=== PATIENT | male | born 1950 | race Caucasian/White ===

== ENCOUNTER → 2017-01-28 | Outpatient (CLI) | payer MEDICARE ==
[2017-01-28 08:53] LABS: Basophils % (A) 1 %; CH 29.3; CHCM 33.8; Eosinophils # (A) 0.4 k/uL (0-0.7); Eosinophils % (A) 5 %; HCT 42.1 % (39.0-53.0); HDW 2.57; HGB 14.5 gm/dL (13.0-17.5); Luc # (Auto) 0.21; Luc % (Auto) 3; Lymphocytes # (A) 2.3 k/uL (1.0-4.8); Lymphocytes % (A) 30 %; MCHC 34.4 g/dL (31.0-37.0); MCV 87.2 fL (80.0-100.0); Monocytes # (A) 0.5 k/uL (0-1.0); Monocytes % (A) 7 %; Neutrophils # (A) 4.2 k/uL (1.3-7.7); Neutrophils % (A) 55 %; RBC 4.83 m/uL (4.30-5.90); RDW 12.8 % (11.5-15.5); WBC 7.6 k/uL (3.8-10.6); WBC (Perox) 7.87
[2017-01-28 09:18] LABS: ALT 29 U/L (21-72); AST 26 U/L (17-59); Alkaline Phosphatase 75 U/L (38-126); Anion Gap 9 mmol/L; Blood Urea Nitrogen 16 mg/dL (9-20); Calcium 9.1 mg/dL (8.4-10.2); Carbon Dioxide 28 mmol/L (22-30); Chloride 105 mmol/L (98-107); Cholesterol 175 mg/dL (<200); Glucose 107 mg/dL (74-99); HDL Cholesterol 48 mg/dL (40-60); Non-African American GFR(MDRD) >60 (>60 ml/min/1.73 sqM); Potassium 4.3 mmol/L (3.5-5.1); Sodium 142 mmol/L (137-145); Total Bilirubin 0.7 mg/dL (0.2-1.3); Total Protein 7.2 g/dL (6.3-8.2); Triglycerides 146 mg/dL (<150)
== END | disposition home or self-care (01) ==
LOC: LABWHC1 08:36
PROVIDERS: ATTEND Internal Medicine
DX: I10 Essential (primary) hypertension (principal); E78.2 Mixed hyperlipidemia; Z12.5 Encounter for screening for malignant neoplasm of prostate
CPT/HCPCS: 36415; 80053; 80061; 85025

== ENCOUNTER → 2017-02-07 | Outpatient (CLI) | payer MEDICARE ==
--- NOTE | 2017-02-07 10:12 | XR ---
EXAMINATION TYPE: XR lumbosacral spine min 4V DATE OF EXAM: 02/07/2017 CLINICAL HISTORY: Sudden onset low back pain. TECHNIQUE: Frontal, lateral, and oblique images of the lumbar spine are obtained. COMPARISON: CT abdomen and pelvis February 07, 2009 FINDINGS: There are 5 lumbar type vertebral bodies identified. The lumbar spine shows satisfactory alignment without evidence of acute fracture or dislocation. Vertebral body heights and disk space he ights are within normal limits. No significant spurring is seen. The oblique images appear within n ormal limits. Vascular calcification of overlying abdominal aorta is present. There are multiple coil s from embolization along course of splenic artery redemonstrated. IMPRESSION: No acute fracture or dislocation is seen in the lumbar spine. No significant finding is seen to account for patient's symptoms.
== END ==
LOC: RADXRMAIN 09:22
PROVIDERS: ATTEND Internal Medicine
DX: M54.5 Low back pain (principal)
CPT/HCPCS: 72110

== ENCOUNTER → 2017-08-13 | Outpatient (CLI) | payer MEDICARE ==
[2017-08-13 08:11] LABS: Basophils # (A) 0.1 k/uL (0-0.2); Basophils % (A) 1 %; Eosinophils # (A) 0.3 k/uL (0-0.7); Eosinophils % (A) 4 %; HCT 43.8 % (39.0-53.0); HGB 14.2 gm/dL (13.0-17.5); Lymphocytes # (A) 2.5 k/uL (1.0-4.8); Lymphocytes % (A) 36 %; MCH 29.1 pg (25.0-35.0); MCHC 32.4 g/dL (31.0-37.0); MCV 89.6 fL (80.0-100.0); Mean Platelet Volume 8.4; Monocytes # (A) 0.5 k/uL (0-1.0); Monocytes % (A) 7 %; Neutrophils # (A) 3.4 k/uL (1.3-7.7); Neutrophils % (A) 49 %; Platelet Count 257 k/uL (150-450); RBC 4.89 m/uL (4.30-5.90); RDW 14.4 % (11.5-15.5)
[2017-08-13 08:38] LABS: AST 27 U/L (17-59); Albumin 3.9 g/dL (3.5-5.0); Alkaline Phosphatase 76 U/L (38-126); Anion Gap 10 mmol/L; Blood Urea Nitrogen 16 mg/dL (9-20); Calcium 9.4 mg/dL (8.4-10.2); Carbon Dioxide 30 mmol/L (22-30); Chloride 103 mmol/L (98-107); Cholesterol 157 mg/dL (<200); Glucose 103 mg/dL (74-99); HDL Cholesterol 40 mg/dL (40-60); LDL Cholesterol,Calculated 84 mg/dL (0-99); Potassium 4.4 mmol/L (3.5-5.1); Sodium 143 mmol/L (137-145); Total Bilirubin 0.5 mg/dL (0.2-1.3); Triglycerides 166 mg/dL (<150)
[2017-08-13 08:39] LABS: ALT 35 U/L (21-72)
== END | disposition home or self-care (01) ==
LOC: LABWHC1 07:19
PROVIDERS: ATTEND Internal Medicine
DX: E78.2 Mixed hyperlipidemia (principal); I10 Essential (primary) hypertension
CPT/HCPCS: 36415; 80053; 80061; 85025

== ENCOUNTER → 2019-02-24 | Outpatient (CLI) | payer MEDICARE | END | disposition home or self-care (01) | LOC: LABWHC1 08:06 | PROVIDERS: ATTEND Urology | DX: R97.20 Elevated prostate specific antigen [PSA] (principal) | CPT/HCPCS: 36415; 84153 ==

== ENCOUNTER → 2020-02-29 | Outpatient (CLI) | payer MEDICARE | END | disposition home or self-care (01) | LOC: LABWHC1 12:45 | PROVIDERS: ATTEND Urology | DX: R97.20 Elevated prostate specific antigen [PSA] (principal) | CPT/HCPCS: 36415; 84153 ==

== ENCOUNTER → 2021-04-14 | Outpatient (CLI) | payer MEDICARE | END | disposition home or self-care (01) | LOC: LABWHC1 11:31 | PROVIDERS: ATTEND Urology | DX: R97.20 Elevated prostate specific antigen [PSA] (principal) | CPT/HCPCS: 36415; 84153 ==

== ENCOUNTER 2021-05-01 06:57 | Outpatient (CLI) | payer MEDICARE | END 2021-05-01 07:49 | disposition home or self-care (01) | LOC: LABWHC1 06:57 | PROVIDERS: ATTEND Internal Medicine | DX: Z53.9 Procedure and treatment not carried out, unspecified reason (principal) ==

== ENCOUNTER → 2021-05-04 | Outpatient (CLI) | payer MEDICARE ==
[2021-05-04 22:52] LABS: Basophils # (A) 0.07 X 10*3/uL (0.00-0.10); Basophils % (A) 0.5 %; Eosinophils # (A) 0.28 X 10*3/uL (0.04-0.35); Eosinophils % (A) 1.9 %; HCT 41.6 % (39.6-50.0); HGB 13.9 g/dL (13.0-17.0); Lymphocytes # (A) 2.94 X 10*3/uL (0.90-5.00); Lymphocytes % (A) 19.6 %; MCH 30.2 pg (27.0-32.0); MCHC 33.4 g/dL (32.0-37.0); MCV 90.2 fL (80.0-97.0); Mean Platelet Volume 10.6 fL (9.5-12.2); Monocytes # (A) 1.28 X 10*3/uL (0.20-1.00); Monocytes % (A) 8.5 %; Neutrophils # (A) 10.07 X 10*3/uL (1.80-7.70); Neutrophils % (A) 67.2 %; Platelet Count 279 X 10*3/uL (140-440); RBC 4.61 X 10*6/uL (4.40-5.60); RDW 13.3 % (11.5-14.5); WBC 14.98 X 10*3/uL (4.50-10.00)
[2021-05-05 18:31] LABS: Immunoglobulin M 88.9 mg/dL (40.0-280.0)
== END | disposition home or self-care (01) ==
LOC: LABT 09:19
PROVIDERS: ATTEND Internal Medicine
DX: D80.1 Nonfamilial hypogammaglobulinemia (principal)
CPT/HCPCS: 36415; 82784; 82785; 82787; 85025; 86317; 86355; 86357; 86359; 86360

== ENCOUNTER → 2021-05-29 | Outpatient (CLI) | payer MEDICARE ==
[2021-05-29 13:59] LABS: Basophils # (A) 0.03 X 10*3/uL (0.00-0.10); Basophils % (A) 0.3 %; Eosinophils # (A) 0.05 X 10*3/uL (0.04-0.35); Eosinophils % (A) 0.5 %; HCT 42.4 % (39.6-50.0); Lymphocytes # (A) 2.47 X 10*3/uL (0.90-5.00); Lymphocytes % (A) 24.4 %; MCH 30.3 pg (27.0-32.0); MCV 91.8 fL (80.0-97.0); Mean Platelet Volume 10.6 fL (9.5-12.2); Monocytes # (A) 0.89 X 10*3/uL (0.20-1.00); Monocytes % (A) 8.8 %; Neutrophils # (A) 6.26 X 10*3/uL (1.80-7.70); Neutrophils % (A) 61.7 %; Platelet Count 325 X 10*3/uL (140-440); RBC 4.62 X 10*6/uL (4.40-5.60); RDW 12.9 % (11.5-14.5); WBC 10.14 X 10*3/uL (4.50-10.00)
[2021-05-29 16:40] LABS: Centromere Antibody <0.2 AI; Centromere Antibody Interp NEGATIVE (NEGATIVE)
== END | disposition home or self-care (01) ==
LOC: LABWHC1 07:02
PROVIDERS: ATTEND Internal Medicine Cardiovascular Disease
DX: L12.0 Bullous pemphigoid (principal)
CPT/HCPCS: 85025; 86038; 36415; U0003; U0005

== ENCOUNTER → 2021-12-24 | Outpatient (CLI) | payer MEDICARE ==
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
== END | disposition home or self-care (01) ==
LOC: RADBDWWP 07:13
PROVIDERS: ATTEND Internal Medicine
DX: M85.80 Other specified disorders of bone density and structure, unspecified site (principal)
CPT/HCPCS: 77080

== ENCOUNTER → 2022-04-12 | Outpatient (CLI) | payer MEDICARE | END | disposition home or self-care (01) | LOC: LABWHC1 14:53 | PROVIDERS: ATTEND Urology | DX: R97.20 Elevated prostate specific antigen [PSA] (principal) | CPT/HCPCS: 36415; 84153 ==

== ENCOUNTER → 2022-05-19 | Outpatient (CLI) | payer MEDICARE | END | disposition home or self-care (01) | LOC: LABWHC1 07:25 | PROVIDERS: ATTEND Urology | DX: R97.20 Elevated prostate specific antigen [PSA] (principal) | CPT/HCPCS: 36415; 84153 ==

== ENCOUNTER → 2022-07-30 | Outpatient (CLI) | payer MEDICARE ==
[2022-07-30 14:53] LABS: Basophils # (A) 0.07 X 10*3/uL (0.00-0.10); Basophils % (A) 0.5 %; Eosinophils # (A) 0.02 X 10*3/uL (0.04-0.35); Eosinophils % (A) 0.1 %; HCT 44.9 % (39.6-50.0); HGB 13.7 g/dL (13.0-17.0); Immature Grans, Automated 1.6 %; Lymphocytes # (A) 1.85 X 10*3/uL (0.90-5.00); Lymphocytes % (A) 13.7 %; MCH 25.8 pg (27.0-32.0); MCHC 30.5 g/dL (32.0-37.0); MCV 84.4 fL (80.0-97.0); Mean Platelet Volume 11.2 fL (9.5-12.2); Monocytes # (A) 0.83 X 10*3/uL (0.20-1.00); Monocytes % (A) 6.1 %; NRBC Per 100 WBC 0 /100 WBCS (0.0-0.0); Neutrophils # (A) 10.52 X 10*3/uL (1.80-7.70); Platelet Count 330 X 10*3/uL (140-440); RBC 5.32 X 10*6/uL (4.40-5.60); RDW 14.6 % (11.5-14.5)
[2022-07-30 16:42] LABS: African American GFR (CKD) 69.1 (60.0-200.0); Albumin 4.2 g/dL (3.8-4.9); Albumin/Globulin Ratio 1.5 (1.60-3.17); Anion Gap 15.6 mmol/L (10.00-18.00); Blood Urea Nitrogen 13.2 mg/dL (9.0-27.0); Calcium 9.4 mg/dL (8.7-10.3); Carbon Dioxide 21.4 mmol/L (20.0-27.5); Globulin 2.8 g/dL (1.6-3.3); Non-African American GFR(CKD) 59.6 (60.0-200.0); Potassium 4.7 mmol/L (3.5-5.5); Total Bilirubin 0.6 mg/dL (0.30-1.20)
== END | disposition home or self-care (01) ==
LOC: LABWHC1 09:01
DX: Z79.899 Other long term (current) drug therapy (principal)
CPT/HCPCS: 36415; 80053; 85025

== ENCOUNTER 2022-11-18 19:56 | Observation (INO) | payer MEDICARE ==
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
[2022-11-18 21:24] LABS: Basophils % (A) 0 %; Eosinophils # (A) 0.2 k/uL (0-0.7); Eosinophils % (A) 2 %; HCT 35.8 % (39.0-53.0); HGB 11.6 gm/dL (13.0-17.5); Lymphocytes # (A) 1.5 k/uL (1.0-4.8); Lymphocytes % (A) 18 %; MCH 30.7 pg (25.0-35.0); MCHC 32.5 g/dL (31.0-37.0); MCV 94.5 fL (80.0-100.0); Mean Platelet Volume 7.9; Monocytes # (A) 0.6 k/uL (0-1.0); Monocytes % (A) 7 %; Neutrophils # (A) 5.6 k/uL (1.3-7.7); Neutrophils % (A) 70 %; Platelet Count 251 k/uL (150-450); RBC 3.79 m/uL (4.30-5.90); RDW 14.7 % (11.5-15.5); WBC 8.1 k/uL (3.8-10.6)
[2022-11-18 21:34] LABS: Partial Thromboplastin Time 23.6 sec (22.0-30.0); Prothrombin Time 10.3 sec (9.0-12.0)
--- NOTE | 2022-11-18 21:43 | ED ---
SOB HPI - General Chief Complaint: Recheck/Abnormal Lab/Rx Stated Complaint: sob/heart issues/swelling of feet Time Seen by Provider: 11/18/22 20:51 Source: patient, RN notes reviewed, old records reviewed Mode of arrival: ambulatory Limitations: no limitations - History of Present Illness Initial Comments: This is a 72-year-old male the ER today. Patient presents today for evaluation of exertional shortness of breath fatigue. Chest pain. Patient has no history of heart disease. Patient is daughter is at bedside he states he is increased swelling of his legs and states the patient has never had this issue in the past. 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 Patient admits to being unable to sleep laying down as he does have a bed that sent him up. Shortness of breath and now increased swelling of the legs. MD Complaint: shortness of breath, chest pain -: days(s) Severity: moderate Severity scale (1-10): 4 Quality: dull Consistency: constant Improves With: nothing Worsens With: exertion, movement Known History Of: other (No prior history of heart failure) Context: occurred during exertion Associated Symptoms: chest pain, orthopnea, palpitations Treatments Prior to Arrival: none - Related Data Home Oxygen Therapy: No Home Medications Medication Instructions Recorded Confirmed ALPRAZolam [Xanax] 0.25 mg PO BID 12/02/21 12/03/21 Atorvastatin Calcium [Lipitor] 20 mg PO DAILY 12/02/21 12/03/21 Aspirin EC [Ecotrin Low Dose] 81 mg PO DAILY 11/18/22 11/18/22 Calcium Carbonate [Calcium] 1,200 mg PO DAILY 11/18/22 11/18/22 Cholecalciferol [Vitamin D3 (25 25 mcg PO DAILY 11/18/22 11/18/22 Mcg = 1000 Iu)] Dapsone 100 mg PO DAILY 11/18/22 11/18/22 Doxycycline Hyclate 100 mg PO BID 11/18/22 11/18/22 Losartan Potassium [Cozaar] 100 mg PO DAILY 11/18/22 11/18/22 Niacinamide 500 mg PO TID 11/18/22 11/18/22 hydrOXYzine HCL [Atarax] 25 mg PO HS 11/18/22 11/18/22 predniSONE 5 mg PO DAILY 11/18/22 11/18/22 Allergies Allergy/AdvReac Type Severity Reaction Status Date / Time Fish Containing Products Allergy Rash/Hives Verified 11/18/22 22:48 [Fish] Review of Systems ROS Statement: Those systems with pertinent positive or pertinent negative responses have been documented in the HPI. ROS Other: All systems not noted in ROS Statement are negative. 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 History of Any Multi-Drug Resistant Organisms: C-DIFF Date of last positivie culture/infection: 2008 Past Surgical History: No Surgical Hx Reported Past Psychological History: No Psychological Hx Reported Smoking Status: Former smoker Past Alcohol Use History: Rare Past Drug Use History: None Reported General Exam Limitations: no limitations General appearance: alert, in no apparent distress, anxious Head exam: Present: atraumatic, normocephalic, normal inspection Eye exam: Present: normal appearance, PERRL, EOMI. Absent: scleral icterus, conjunctival injection, periorbital swelling ENT exam: Present: normal exam, mucous membranes moist Neck exam: Present: normal inspection. Absent: tenderness, meningismus, lymphadenopathy Respiratory exam: Present: decreased breath sounds. Absent: respiratory distress, wheezes, rales, rhonchi, stridor Cardiovascular Exam: Present: regular rate, normal rhythm, normal heart sounds. Absent: systolic murmur, diastolic murmur, rubs, gallop, clicks GI/Abdominal exam: Present: soft, normal bowel sounds. Absent: distended, tenderness, guarding, rebound, rigid Extremities exam: Present: normal inspection, full ROM, normal capillary refill, other (Bilateral lower Shorty pain and edema). Absent: tenderness, pedal edema, joint swelling, calf tenderness Back exam: Present: normal inspection Neurological exam: Present: alert, oriented X3, CN II-XII intact Psychiatric exam: Present: normal affect, normal mood Skin exam: Present: warm, dry, intact, normal color. Absent: rash Course Vital Signs 11/18/22 11/18/22 11/18/22 20:07 20:52 21:16 Temperature 98.2 F Pulse Rate 98 84 Respiratory 20 21 17 Rate Blood Pressure 125/70 142/86 O2 Sat by Pulse 93 L Oximetry 11/18/22 22:04 Temperature 98.1 F Pulse Rate 94 Respiratory 19 Rate Blood Pressure 145/76 O2 Sat by Pulse 95 Oximetry - Reevaluation(s) Reevaluation #1: 11/18/22 22:50 Medical records reviewed Reevaluation #2: 11/18/22 22:50 Patient does still have some shortness of breath here in the ER at baseline at rest Reevaluation #3: 11/18/22 22:50 Patient informed results and questions answered Reevaluation #4: 11/18/22 22:50 Was pt. sent in by a medical professional or institution? @ -no Did you speak to anyone other than the patient for history? @ -no Did you review nursing and triage notes? @ -agree Were old charts reviewed? @ -no Differential Diagnosis? @ -no EKG interpreted by me (3pts min.)? @ -yes X-rays interpreted by me (1pt min.)? @ -yes CT interpreted by me (1pt min.)? @ -no U/S interpreted by me (1pt. min.)? @ -no What testing was considered but not performed? (CT, X-rays, U/S, labs)? Why? @ -no What meds were considered but not given? Why? @ -no Did you discuss the management of the patient with other professionals? @ -no Did you reconcile home meds? @ -no Was smoking cessation discussed for >3mins.? @ -no Was critical care preformed (if so, how long)? @ -no Were there social determinants of health that impacted care today? How? (Homelessness, low income, unemployed, alcoholism, drug addiction, transportation, low edu. Level, literacy, decrease access to med. care, fci, rehab)? @ -no Was there de-escalation of care discussed even if they declined? (Discuss DNR or withdrawal of care, Hospice)? @ -no What co-morbidities impacted this encounter? (DM, HTN, Smoking, COPD, CAD, Cancer, CVA, Hep., AIDS, mental health diagnosis, sleep apnea, morbid obesity)? @ -no Was patient admitted / discharged? @ -admit Undiagnosed new problem with uncertain prognosis? @ -no Drug Therapy requiring intensive monitoring for toxicity (Heparin, Nitro, Insulin, Cardizem)? @ -no Were any procedures done? @ -no Diagnosis/symptom? @ -chf Acute, or Chronic, or Acute on Chronic? @ -acute Uncomplicated (without systemic symptoms) or Complicated (systemic symptoms)? @ -uncomplicated Side effects of treatment? @ -no Exacerbation, Progression, or Severe Exacerbation] @ -no Poses a threat to life or bodily function? @ -no Reevaluation #5: 11/18/22 22:50 Differential Dyspnea: Coronary syndrome, arrhythmia, tamponade, asthma, COPD, pulmonary embolism, pneumonia, pneumothorax, pulmonary effusion, anaphylaxis, diabetic ketoacidosis, flailed chest, pulmonary contusion, diaphragmatic rupture, anemia, neuromuscular, this is not meant to be an all-inclusive list. - Consultations Consultation #1: Spoke with sound physicians who agree to admit this patient Medical Decision Making - Medical Decision Making 72 male with increasing shortness of breath, decreased exercise tolerance increasing swelling in both legs. Patient has occasional chest pain but no curr ent chest pain. Patient has mild troponin leak, patient will be admitted for cardiac observation. Patient does admit concerned over pain place on dapsone for autoimmune disease and possible cardiac effects of this medication - Lab Data Result diagrams: 11/18/22 21:14 11/18/22 21:14 Lab Results 11/18/22 11/18/22 11/18/22 Range/Units 21:14 21:14 21:14 WBC (3.8-10.6) k/uL RBC (4.30-5.90) m/uL Hgb (13.0-17.5) gm/dL Hct (39.0-53.0) % MCV (80.0-100.0) fL MCH (25.0-35.0) pg MCHC (31.0-37.0) g/dL RDW (11.5-15.5) % Plt Count (150-450) k/uL MPV Neutrophils % % Lymphocytes % % Monocytes % % Eosinophils % % Basophils % % Neutrophils # (1.3-7.7) k/uL Lymphocytes # (1.0-4.8) k/uL Monocytes # (0-1.0) k/uL Eosinophils # (0-0.7) k/uL Basophils # (0-0.2) k/uL PT 10.3 (9.0-12.0) sec INR 1.0 (<1.2) APTT 23.6 (22.0-30.0) sec Sodium 135 L (137-145) mmol/L Potassium 4.2 (3.5-5.1) mmol/L Chloride 101 (98-107) mmol/L Carbon Dioxide 30 (22-30) mmol/L Anion Gap 4 mmol/L BUN 16 (9-20) mg/dL Creatinine 0.82 (0.66-1.25) mg/dL Est GFR (CKD-EPI)AfAm >90 (>60 ml/min/1.73 sqM) Est GFR (CKD-EPI)NonAf 88 (>60 ml/min/1.73 sqM) Glucose 126 H (74-99) mg/dL Plasma Lactic Acid Edmundo (0.7-2.0) mmol/L Calcium 8.9 (8.4-10.2) mg/dL Total Bilirubin 1.1 (0.2-1.3) mg/dL AST 42 (17-59) U/L ALT 39 (4-49) U/L Alkaline Phosphatase 53 (38-126) U/L Troponin I 0.017 (0.000-0.034) ng/mL NT-Pro-B Natriuret Pep pg/mL Total Protein 6.4 (6.3-8.2) g/dL Albumin 3.9 (3.5-5.0) g/dL 11/18/22 11/18/22 11/18/22 Range/Units 21:14 21:14 21:14 WBC 8.1 (3.8-10.6) k/uL RBC 3.79 L (4.30-5.90) m/uL Hgb 11.6 L (13.0-17.5) gm/dL Hct 35.8 L (39.0-53.0) % MCV 94.5 (80.0-100.0) fL MCH 30.7 (25.0-35.0) pg MCHC 32.5 (31.0-37.0) g/dL RDW 14.7 (11.5-15.5) % Plt Count 251 (150-450) k/uL MPV 7.9 Neutrophils % 70 % Lymphocytes % 18 % Monocytes % 7 % Eosinophils % 2 % Basophils % 0 % Neutrophils # 5.6 (1.3-7.7) k/uL Lymphocytes # 1.5 (1.0-4.8) k/uL Monocytes # 0.6 (0-1.0) k/uL Eosinophils # 0.2 (0-0.7) k/uL Basophils # 0.0 (0-0.2) k/uL PT (9.0-12.0) sec INR (<1.2) APTT (22.0-30.0) sec Sodium (137-145) mmol/L Potassium (3.5-5.1) mmol/L Chloride (98-107) mmol/L Carbon Dioxide (22-30) mmol/L Anion Gap mmol/L BUN (9-20) mg/dL Creatinine (0.66-1.25) mg/dL Est GFR (CKD-EPI)AfAm (>60 ml/min/1.73 sqM) Est GFR (CKD-EPI)NonAf (>60 ml/min/1.73 sqM) Glucose (74-99) mg/dL Plasma Lactic Acid Edmundo 1.3 (0.7-2.0) mmol/L Calcium (8.4-10.2) mg/dL Total Bilirubin (0.2-1.3) mg/dL AST (17-59) U/L ALT (4-49) U/L Alkaline Phosphatase (38-126) U/L Troponin I (0.000-0.034) ng/mL NT-Pro-B Natriuret Pep 13 pg/mL Total Protein (6.3-8.2) g/dL Albumin (3.5-5.0) g/dL - EKG Data -: EKG Interpreted by Me (EKG is sinus 96 MA 135 QRS 86 QTc 403) - Radiology Data Radiology results: report reviewed (Chest x-rays negative for acute disease), image reviewed Disposition Clinical Impression: ACS (acute coronary syndrome), CHF (congestive heart failure), Chest pain Disposition: ADMITTED IP TO THIS HOSP Condition: Fair Is patient prescribed a controlled substance at d/c from ED?: No Referrals: Miki Fernandez MD [Primary Care Provider] - 1-2 days Time of Disposition: 22:45
[2022-11-18 21:52] LABS: ALT 39 U/L (4-49); AST 42 U/L (17-59); African American GFR (CKD) >90 (>60 ml/min/1.73 sqM); Albumin 3.9 g/dL (3.5-5.0); Alkaline Phosphatase 53 U/L (38-126); Anion Gap 4 mmol/L; Blood Urea Nitrogen 16 mg/dL (9-20); Calcium 8.9 mg/dL (8.4-10.2); Carbon Dioxide 30 mmol/L (22-30); Chloride 101 mmol/L (98-107); Glucose 126 mg/dL (74-99); Non-African American GFR(CKD) 88 (>60 ml/min/1.73 sqM); Potassium 4.2 mmol/L (3.5-5.1); Sodium 135 mmol/L (137-145); Total Bilirubin 1.1 mg/dL (0.2-1.3); Total Protein 6.4 g/dL (6.3-8.2)
[2022-11-18] MEDS ORDERED: MORPHINE SULFATE 4 MG/ML SYRINGE IV PRN (22:47)
[2022-11-18] MEDS ORDERED: ASPIRIN 81 MG PO STA (22:47)
[2022-11-18] MEDS ORDERED: NITROGLYCERIN SL TABS 0.4 MG TAB SUBLINGUAL PRN (22:47)
--- NOTE | 2022-11-19 02:16 | P.HPIM ---
History of Present Illness H&P Date: 11/18/22 Patient is a 72-year-old male with a PMH of an autoimmune disorder (does not recall name, onset following COVID-19 vaccine, following at [facility]), hypertension, and hyperlipidemia who presents to the emergency room with complaints of lower extremity edema. The patient states that he leads a relatively active lifestyle where he bowls 4-5 times every week. He states that over the past 2 days, he noticed gradually worsening lower extremity edema which had been painless. He reports that the swelling would improve overnight and then would worsen by the end of the day. He reports that roughly 2 weeks ago, he did experience a URI which has completely resolved. He denied experiencing chest discomfort, shortness of breath, orthopnea, PND, palpitations, nausea, vomiting, diaphoresis. Denies any prior history of lower extremity swelling or pain. Denied history of blood clots. The patient underwent an extensive evaluation in the emergency room. Chest x- ray was unremarkable. EKG revealed sinus rhythm at 96 bpm with left axis deviation as reviewed by me. Laboratory evaluation was remarkable for hemoglobin of 11.6, sodium 135, potassium 4.2, BUN 16, creatinine 0.82, glucose 126, lactic acid 1.3, troponin I 0.017 with proBNP 13. ED documentation reviewed and case discussed with ED provider. Review of systems: Pertinent positives and negatives as discussed in HPI, a complete review of systems was performed and all other systems are negative. Physical examination: Vital signs reviewed General: non toxic, no distress, appears at stated age, overweight Derm: no unusual rashes/lesions, warm Head: atraumatic, normocephalic, symmetric Eyes: EOMI, no lid lag, anicteric sclera, pupils equal round reactive to light ENT: Nose and ears atraumatic Neck: No cervical lymphadenopathy, trachea midline, supple Mouth: no lip lesion, mucus membranes moist Cardiovascular: S1S2 reg, no murmur, positive dorsalis pedis pulse bilateral, 1+ bilateral lower extremity pitting edema to mid leroy with varicosities noted Lungs: CTA bilateral, no rhonchi, no rales, no accessory muscle use Abdominal: soft, nontender to palpation, no guarding Ext: muscle strength 5 out of 5 in all 4 extremities grossly, no gross muscle atrophy, no contractures, Neuro: CN II-XI grossly intact, no gross focal neuro deficits Psych: Alert, oriented, appropriate affect Assessment: Bilateral lower extremity pitting edema, new onset, suspect due to varicose veins and less likely CHF Chronic conditions: Hypertension, hyperlipidemia, autoimmune disorder (currently on dapsone and prednisone daily) Imaging: Chest x-ray was unremarkable. EKG revealed sinus rhythm at 96 bpm with left axis deviation as reviewed by me. Data Review: Laboratory evaluation was remarkable for hemoglobin of 11.6, sodium 135, potassium 4.2, BUN 16, creatinine 0.82, glucose 126, lactic acid 1.3, troponin I 0.017 with proBNP 13. 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 History of Any Multi-Drug Resistant Organisms: C-DIFF Date of last positivie culture/infection: 2008 Past Surgical History: No Surgical Hx Reported Past Psychological History: No Psychological Hx Reported Smoking Status: Former smoker Past Alcohol Use History: Rare Past Drug Use History: None Reported - Past Family History Mother Family Medical History: Hypertension Medications and Allergies Home Medications Medication Instructions Recorded Confirmed Type ALPRAZolam [Xanax] 0.25 mg PO TID 12/02/21 11/18/22 History Atorvastatin Calcium [Lipitor] 20 mg PO DAILY 12/02/21 11/18/22 History Aspirin EC [Ecotrin Low Dose] 81 mg PO DAILY 11/18/22 11/18/22 History Calcium Carbonate [Calcium] 1,200 mg PO DAILY 11/18/22 11/18/22 History Cholecalciferol [Vitamin D3 (25 25 mcg PO DAILY 11/18/22 11/18/22 History Mcg = 1000 Iu)] Dapsone 100 mg PO DAILY 11/18/22 11/18/22 History Doxycycline Hyclate 100 mg PO BID 11/18/22 11/18/22 History Losartan Potassium [Cozaar] 100 mg PO DAILY 11/18/22 11/18/22 History Niacinamide 500 mg PO TID 11/18/22 11/18/22 History hydrOXYzine HCL [Atarax] 25 mg PO HS 11/18/22 11/18/22 History predniSONE 5 mg PO DAILY 11/18/22 11/18/22 History Allergies Allergy/AdvReac Type Severity Reaction Status Date / Time Fish Containing Products Allergy Rash/Hives Verified 11/18/22 22:48 [Fish] Physical Exam Vitals: Vital Signs Temp Pulse Resp BP Pulse Ox 11/18/22 23:54 92 18 147/91 94 L 11/18/22 22:57 96 19 146/79 95 11/18/22 22:04 98.1 F 94 19 145/76 95 11/18/22 21:16 84 17 142/86 93 L 11/18/22 20:52 21 11/18/22 20:07 98.2 F 98 20 125/70 Intake and Output 11/18/22 11/18/22 11/19/22 14:59 22:59 06:59 Other: Weight 83.915 kg Results CBC & Chem 7: 11/18/22 21:14 11/18/22 21:14 Labs: Abnormal Lab Results - Last 24 Hours (Table) 11/18/22 11/18/22 Range/Units 21:14 21:14 RBC 3.79 L (4.30-5.90) m/uL Hgb 11.6 L (13.0-17.5) gm/dL Hct 35.8 L (39.0-53.0) % Sodium 135 L (137-145) mmol/L Glucose 126 H (74-99) mg/dL
[2022-11-19] MEDS: ALPRAZolam 0.25 MG TAB PO SCH ×3 (02:48→16:36)
[2022-11-19] MEDS ORDERED: ATORVASTATIN 20 MG TAB PO SCH (09:00)
[2022-11-19] MEDS ORDERED: predniSONE 5 MG TAB PO SCH (09:00)
[2022-11-19] MEDS ORDERED: DAPSONE 25 MG TAB PO SCH (09:00)
[2022-11-19] MEDS ORDERED: ASPIRIN 325 MG TAB PO SCH (09:00)
[2022-11-19] MEDS ORDERED: LOSARTAN 50 MG TAB PO SCH (09:00)
[2022-11-19 09:30] LABS: Chol/HDL Ratio 3.33 Ratio; LDL Cholesterol,Calculated 99.6 mg/dL (0.0-131.0)
--- NOTE | 2022-11-19 11:47 | CA ---
Transthoracic Echo Report Name: Luis Antonio Ayon Age: 72 Gender: M : 1950 Exam Date: 11/19/2022 08:38 Exam Location: [facility] Ht (in): 66 Wt (lb): 185 Ordering Physician: Александр James DO Attending/Referring Phys: Mahogany Rivero Tip Cutter Marcella Cage RDCS Procedure CPT: Indications: ACS Cardiac Hx: Technical Quality: Fair Contrast 1: Total Dose (mL): Contrast 2: Total Dose (mL): MEASUREMENTS (Male / Female) Normal Values 2D ECHO LV Diastolic Diameter PLAX 4.3 cm 4.2 - 5.9 / 3.9 - 5.3 cm LV Systolic Diameter PLAX 2.4 cm IVS Diastolic Thickness 1.5 cm 0.6 - 1.0 / 0.6 - 0.9 cm LVPW Diastolic Thickness 1.6 cm 0.6 - 1.0 / 0.6 - 0.9 cm LV Relative Wall Thickness 0.7 RV Internal Dim ED PLAX 3.5 cm LA Volume 37.8 cm??? 18 - 58 / 22 - 52 cm??? M-MODE Aortic Root Diameter MM 2.8 cm LA Systolic Diameter MM 4.0 cm LA Ao Ratio MM 1.4 AV Cusp Separation MM 1.9 cm DOPPLER AV Peak Velocity 135.1 cm/s AV Peak Gradient 7.3 mmHg AV Mean Velocity 101.2 cm/s AV Mean Gradient 4.4 mmHg AV Velocity Time Integral 25.4 cm LVOT Peak Velocity 87.7 cm/s LVOT Peak Gradient 3.1 mmHg LVOT Velocity Time Integral 17.0 cm MV Area PHT 2.7 cm??? Mitral E Point Velocity 59.9 cm/s Mitral A Point Velocity 101.2 cm/s Mitral E to A Ratio 0.6 MV Deceleration Time 277.2 ms MV E' Velocity 4.5 cm/s Mitral E to MV E' Ratio 13.4 TR Peak Velocity 197.4 cm/s TR Peak Gradient 15.6 mmHg Right Ventricular Systolic Press 20.6 mmHg FINDINGS Left Ventricle Moderately increased left ventricular wall thickness. Normal left ventricular systolic function with no obvious regional wall motion abnormalities. Left ventricular cavity size normal. Left ventricular ejection fraction is estimated at 55-60 %. Right Ventricle Mild right ventricular dilatation. Right ventricular systolic pressure within normal limits. Right Atrium Normal right atrial size. Left Atrium Normal left atrial size. Mitral Valve Structurally normal mitral valve. No mitral stenosis, regurgitation or prolapse. Aortic Valve No aortic valve stenosis or regurgitation. Tricuspid Valve Structurally normal tricuspid valve. Mild tricuspid regurgitation. Pulmonic Valve Structurally normal pulmonic valve. Pericardium No pericardial effusion. Aorta Normal size aortic root and proximal ascending aorta. CONCLUSIONS Normal LV systolic function Previewed by: Dr. Harry Briones MD (Electronically Signed) Final Date: 19 November 2022 11:46
--- NOTE | 2022-11-19 16:43 | US ---
EXAMINATION TYPE: US venous doppler duplex LE DATE OF EXAM: 11/19/2022 3:26 PM COMPARISON: NONE CLINICAL INDICATION: Male, 72 years old with history of BLE edema; Edema bilateral legs SIDE PERFORMED: bilateral TECHNIQUE: The lower extremity deep venous system is examined utilizing real time linear array sonog merritt with graded compression, doppler sonography and color-flow sonography. VESSELS IMAGED: Common Femoral Vein Deep Femoral Vein Greater Saphenous Vein * Femoral Vein Popliteal Vein Small Saphenous Vein * Proximal Calf Veins (* superficial vessels) Right Leg: No evidence of DVT as visualized Left Leg: no evidence of DVT IMPRESSION: Grayscale, color doppler, spectral doppler imaging performed of the deep veins of the lo wer extremities. There is normal flow, compressibility, vascular waveforms.
--- NOTE | 2022-11-19 17:10 | P.DS ---
Providers Date of admission: 11/18/22 22:48 Expected date of discharge: 11/19/22 Attending physician: Radha Vazquez MD Primary care physician: Miki Fernandez MD Hospital Course: Discharge Diagnosis: Bilateral lower extremity pitting edema secondary to venous stasis resulting from peripheral vascular disease. Patient educated on LADY hose use and to follow up outpatient with vascular surgery in 1 week. Autoimmune disorder currently on doxycycline, dapsone, and prednisone daily. Hypertension Hyperlipidemia Hospital Course: Patient is a very pleasant 72-year-old male with a past medical history of hypertension, hyperlipidemia, and autoimmune disorder resulting from recent vaccine currently on doxycycline, dapsone, and prednisone daily. Patient presented to the emergency department for increased lower extremity edema 3 days. Patient states he is very active and has been on his feet more so than often. Patient underwent full evaluation in the emergency department. CBC, coags, and CMP were completed all unremarkable. Troponin 0.017. Chest x-ray negative for acute cardiopulmonary process. EKG showing sinus mechanism at 96 bpm with no noted T-wave or ST abnormalities showing no signs of acute ischemia. Patient was admitted under our services at this time. Troponins trended resulting in 0.017, and less than 0.0122 draws. Patient denies having any shortness of breath, chest pain, palpitations, or any other complaints. He reports able to walk up 2 flights of stairs without any difficulties. Echocardiogram was completed revealing normal EF of 55-60% with normal size aortic root and proximal ascending aorta and no significant valvular structural abnormalities. Bilateral lower extremity venous Dopplers also completed and were negative for DVT. Bilateral lower extremity edema is believed to be secondary to peripheral vascular disease along with mild underlying peripheral arterial disease as patient does have noted hair loss and thinning of skin to lower extremities. Patient educated on LADY hose use and the importance of elevating lower extremities without any use. Medically, patient is stable for discharge at this time and is recommended to follow up outpatient with his PCP and vascular surgery as discussed. Patient denied having any questions, concerns, complaints, or needs at this time. Physical exam: Patient seen and examined at bedside. Vital signs reviewed and stable. General: Nontoxic, no distress and appears stated age. Derm: Skin warm and dry, normal coloration for ethnicity. Head: Atraumatic, normocephalic and symmetric. Eyes: EOMs intact, no lid lag, and anicteric sclera Mouth: no lip lesions, mucus membranes moist Cardiovascular: regular rate and rhythm with normal S1S2, no murmur, positive posterior tibial pulses bilaterally, and cap refill < 2 seconds. Lungs: Respirations even, regular, and unlabored on room air. Lungs CTA bilaterally, no rhonchi, no rales, no wheezing, and no accessory muscle usage. Abdominal: soft, nontender to palpation, no guarding, no appreciable organomegaly Ext: ROM intact. No gross muscle atrophy, 2+ edema, no contractures Neuro: Speech clear, face symmetrical and CN II-XII grossly intact with no noted focal neuro deficits Psych: Alert and oriented to person, place, time, and situation. Appropriate and pleasant affect. A total of 31 minutes of time were spent preparing this complex discharge summary. Pt was discharged on 11/19/22 at 5:07 PM. Patient was seen independently by Nurse Practitioner. This document was prepared using [employer] dictation software. Please allow for errors in transcription coordinator while rare they do occur. I reviewed the documentation as provided by the GARRICK above, who is the original author of this note. I agree with the documented assessment and plan, with the following changes: none Patient Condition at Discharge: Stable Plan - Discharge Summary New Discharge Prescriptions: Continue ALPRAZolam [Xanax] 0.25 mg PO TID Atorvastatin Calcium [Lipitor] 20 mg PO DAILY Cholecalciferol [Vitamin D3 (25 Mcg = 1000 Iu)] 25 mcg PO DAILY Calcium Carbonate [Calcium] 1,200 mg PO DAILY Doxycycline Hyclate 100 mg PO BID hydrOXYzine HCL [Atarax] 25 mg PO HS predniSONE 5 mg PO DAILY Niacinamide 500 mg PO TID Losartan Potassium [Cozaar] 100 mg PO DAILY Aspirin EC [Ecotrin Low Dose] 81 mg PO DAILY Dapsone 100 mg PO DAILY Discharge Medication List ALPRAZolam [Xanax] 0.25 mg PO TID 12/02/21 [History] Atorvastatin Calcium [Lipitor] 20 mg PO DAILY 12/02/21 [History] Aspirin EC [Ecotrin Low Dose] 81 mg PO DAILY 11/18/22 [History] Calcium Carbonate [Calcium] 1,200 mg PO DAILY 11/18/22 [History] Cholecalciferol [Vitamin D3 (25 Mcg = 1000 Iu)] 25 mcg PO DAILY 11/18/22 [History] Dapsone 100 mg PO DAILY 11/18/22 [History] Doxycycline Hyclate 100 mg PO BID 11/18/22 [History] Losartan Potassium [Cozaar] 100 mg PO DAILY 11/18/22 [History] Niacinamide 500 mg PO TID 11/18/22 [History] hydrOXYzine HCL [Atarax] 25 mg PO HS 11/18/22 [History] predniSONE 5 mg PO DAILY 11/18/22 [History] Follow up Appointment(s)/Referral(s): Harry Briones MD [STAFF PHYSICIAN] - 1 Week Miki Fernandez MD [Primary Care Provider] - 1-2 days Elzbieta Huynh DO [STAFF PHYSICIAN] - 1 Week Patient Instructions/Handouts: Peripheral Vascular Disease (ED), LADY Kaur (DC) Activity/Diet/Wound Care/Special Instructions: Activity: As tolerated. Take breaks as needed. Diet: Heart healthy and carb consistent diet. Avoid salts, or foods with hidden salts such as canned or boxed foods and frozen dinners. Extra salt makes your heart work harder and traps the fluid in your body for longer. Special Instructions: Take all of your medications as directed and remember to keep all of your doctor's appointments and follow-up as needed. Again I would like to truly thank you for your service, it is always an honor to provide care for a !!!!!!! Thank you for allowing us to participate in your care, it was honestly a pleasure having you for our patient!!! Hope you enjoyed your donuts!!! Discharge Disposition: HOME SELF-CARE
[2022-11-19 17:23] VITALS: BP 148/68; PULSE 70; RESP 18; TEMP 98.3
[2022-11-19] MEDS ORDERED: hydrOXYzine HCL 25 MG TAB PO SCH (21:00)
== END 2022-11-19 18:43 | disposition home or self-care (01) ==
LOC: EC 19:56 → 6NMEDSUR 22:48
PROVIDERS: ADMIT Internal Medicine; ATTEND Internal Medicine
DX: R60.0 Localized edema (principal); I73.9 Peripheral vascular disease, unspecified; I24.9 Acute ischemic heart disease, unspecified; I11.0 Hypertensive heart disease with heart failure; I50.9 Heart failure, unspecified; E78.5 Hyperlipidemia, unspecified; D89.89 Other specified disorders involving the immune mechanism, not elsewhere classified; Z87.891 Personal history of nicotine dependence; Z79.82 Long term (current) use of aspirin; Z79.899 Other long term (current) drug therapy; Z79.52 Long term (current) use of systemic steroids
CPT/HCPCS: 99285; 36415; 93005; 93306; 83880; 80061; 80053; 83605; 84484 ×2; 85025; 85610; 85730; 71046; 93970; G0378 ×3

== ENCOUNTER → 2023-04-11 | Outpatient (CLI) | payer MEDICARE ==
[2023-04-11 14:01] LABS: Basophils # (A) 0.05 X 10*3/uL (0.00-0.10); Basophils % (A) 0.6 %; Eosinophils # (A) 0.17 X 10*3/uL (0.04-0.35); HCT 41.5 % (39.6-50.0); HGB 12.7 d/dL (13.0-17.0); Lymphocytes # (A) 2.51 X 10*3/uL (0.90-5.00); Lymphocytes % (A) 28.9 %; MCH 26.5 pg (27.0-32.0); MCHC 30.6 d/dL (32.0-37.0); MCV 86.6 FL (80.0-97.0); Mean Platelet Volume 10.6 FL (9.5-12.2); Monocytes # (A) 0.93 X 10*3/uL (0.20-1.00); Monocytes % (A) 10.7 %; NRBC Per 100 WBC 0 X 10*3/uL (0.00-0.01); Neutrophils # (A) 4.99 X 10*3/uL (1.80-7.70); Neutrophils % (A) 57.3 %; Platelet Count 308 X 10*3/uL (140-440); RBC 4.79 X 10*6/uL (4.40-5.60); RDW 17.6 % (11.5-14.5); WBC 8.69 X 10*3/uL (4.50-10.00)
[2023-04-11 14:48] LABS: ALT 26 U/L (10-49); AST 25 U/L (14-35); Albumin 4.2 d/dL (3.8-4.9); Alkaline Phosphatase 48 U/L (41-126); Bilirubin, Conjugated <0.20 mg/dL (0.20-0.40); Bilirubin,Unconjugated >0.20 mg/dL (0.20-1.00); Total Bilirubin 0.4 mg/dL (0.3-1.2); Total Protein 6.2 d/dL (6.2-8.2)
== END | disposition home or self-care (01) ==
LOC: LABWHC1 06:51
PROVIDERS: ATTEND Physician Assistant
DX: L12.0 Bullous pemphigoid (principal); R97.20 Elevated prostate specific antigen [PSA]; Z79.899 Other long term (current) drug therapy
CPT/HCPCS: 36415; 80076; 82565; 84153; 85025

== ENCOUNTER → 2023-05-25 | Outpatient (CLI) | payer MEDICARE | END | disposition home or self-care (01) | LOC: LABWHC1 15:48 | PROVIDERS: ATTEND Urology | DX: R97.20 Elevated prostate specific antigen [PSA] (principal) | CPT/HCPCS: 36415; 84153 ==

== ENCOUNTER → 2023-06-10 | Outpatient (CLI) | payer MEDICARE ==
--- NOTE | 2023-06-10 11:51 | MR ---
EXAMINATION TYPE: MR Prostate wo/w con DATE OF EXAM: 06/10/2023 9:59 AM COMPARISON: None. CLINICAL INDICATION:Male, 73 years old with history of R97.20 ELEVATED PROSTATE SPECIFIC ANTIGEN; Kiya vated PSA TECHNIQUE: Multi-planar, multi-sequence imaging of the pelvis is performed prior to and following the uncomplicated administration of bolus intravenous gadolinium. CONTRAST: 8.5 Gadavist Interpretive Criteria: PI-RADS v2.1 SERUM PSA: 8.0 on 05/25/2023 5.1 on 05/19/2022. SURGICAL PATHOLOGY: Benign biopsy on 09/29/2016 FINDINGS: Prostatic dimensions: 5.4 x 5.6 x 4.0 cm. Ellipsoid Volume: 63.33 (PSA density=0.13 ng/mL/mL) CENTRAL GLAND (Central and Transition Zones/CZ+TZ): Multiple bilateral, heterogenous appearing hypertrophic stromal nodules, without suspicious lesion. M edian lobe hypertrophy with protrusion into the base of the bladder. (PI-RADS 2) PERIPHERAL ZONE (PZ): Bilateral linear, indistinct wedgelike areas of low ADC, and low T2 signal, No evidence of masslike a bnormality, or localized perfusional hypervascularity, to further suggest a focus of clinically signi ficant prostate cancer. (PI-RADS 2) SEMINAL VESICLES (SV): Symmetric and unremarkable. PERIPROSTATIC TISSUES: Unremarkable. LYMPH NODES: No enlarged pelvic lymph node. REMAINING PELVIS: Trabeculated bladder wall likely secondary to chronic bladder outlet obstruction. No abnormal free or organized intrapelvic fluid collection. No pathologic bowel dilation or mural thickening. Bilateral fat containing inguinal hernias. OSSEOUS STRUCTURES: No suspicious osseous abnormality. IMPRESSION: 1. No specific features for high-risk prostate cancer. Maximum PI-RADS score: 2. 2. Moderate BPH, estimated gland volume 63.33 mL. 3. No suspicious osseous lesion. No lymphadenopathy. No evidence of prostate adenocarcinoma involving the periprostatic tissues.
== END | disposition home or self-care (01) ==
LOC: RADMRIMAIN 09:00
PROVIDERS: ATTEND Urology
DX: N40.0 Benign prostatic hyperplasia without lower urinary tract symptoms (principal); R97.20 Elevated prostate specific antigen [PSA]
CPT/HCPCS: 72197; A9585

== ENCOUNTER → 2023-06-15 | Outpatient (CLI) | payer MEDICARE ==
[2023-06-15 11:03] LABS: Basophils # (A) 0.05 X 10*3/uL (0.00-0.10); Basophils % (A) 0.6 %; Eosinophils # (A) 0.42 X 10*3/uL (0.04-0.35); Eosinophils % (A) 5.1 %; HCT 42.2 % (39.6-50.0); HGB 13.2 g/dL (13.0-17.0); Lymphocytes # (A) 2.05 X 10*3/uL (0.90-5.00); MCH 26.7 pg (27.0-32.0); MCHC 31.3 g/dL (32.0-37.0); MCV 85.4 FL (80.0-97.0); Mean Platelet Volume 10.2 FL (9.5-12.2); Monocytes # (A) 0.96 X 10*3/uL (0.20-1.00); Monocytes % (A) 11.7 %; NRBC Per 100 WBC 0 X 10*3/uL (0.00-0.01); Neutrophils # (A) 4.69 X 10*3/uL (1.80-7.70); Neutrophils % (A) 57.4 %; Platelet Count 304 X 10*3/uL (140-440); RBC 4.94 X 10*6/uL (4.40-5.60); RDW 12.8 % (11.5-14.5); WBC 8.19 X 10*3/uL (4.50-10.00)
[2023-06-15 11:28] LABS: ALT 27 U/L (10-49); AST 28 U/L (14-35); Albumin 4.1 g/dL (3.8-4.9); Albumin/Globulin Ratio 2.05 Ratio (1.60-3.17); Alkaline Phosphatase 54 U/L (41-126); Bilirubin, Conjugated <0.20 mg/dL (0.20-0.40); Bilirubin,Unconjugated >0.20 mg/dL (0.20-1.00); Blood Urea Nitrogen 14.4 mg/dL (9.0-27.0); Calcium 9.6 mg/dL (8.7-10.3); Chloride 102 mmol/L (96-109); Chol/HDL Ratio 2.78 Ratio; Glucose 100 mg/dL (70-110); LDL Cholesterol,Calculated 75.8 mg/dL (0.0-131.0); Potassium 4.3 mmol/L (3.5-5.5); Sodium 141 mmol/L (135-145); Total Bilirubin 0.4 mg/dL (0.3-1.2); Total Protein 6.1 g/dL (6.2-8.2)
== END | disposition home or self-care (01) ==
LOC: LABWHC1 06:53
PROVIDERS: ATTEND Internal Medicine
DX: I10 Essential (primary) hypertension (principal); M85.80 Other specified disorders of bone density and structure, unspecified site; L12.0 Bullous pemphigoid; Z79.899 Other long term (current) drug therapy
CPT/HCPCS: 36415; 80053; 80061; 82248; 82306; 84443; 85025

== ENCOUNTER → 2023-08-19 | Outpatient (CLI) | payer MEDICARE ==
[2023-08-19 18:46] LABS: Basophils # (A) 0.04 X 10*3/uL (0.00-0.10); Basophils % (A) 0.6 %; Eosinophils # (A) 0.41 X 10*3/uL (0.04-0.35); Eosinophils % (A) 6.2 %; HCT 41.5 % (39.6-50.0); HGB 13.1 g/dL (13.0-17.0); Lymphocytes # (A) 1.47 X 10*3/uL (0.90-5.00); Lymphocytes % (A) 22.2 %; MCH 26.7 pg (27.0-32.0); MCHC 31.6 g/dL (32.0-37.0); MCV 84.5 FL (80.0-97.0); Mean Platelet Volume 10.2 FL (9.5-12.2); Monocytes # (A) 0.95 X 10*3/uL (0.20-1.00); Monocytes % (A) 14.3 %; NRBC Per 100 WBC 0 X 10*3/uL (0.00-0.01); Neutrophils # (A) 3.75 X 10*3/uL (1.80-7.70); Neutrophils % (A) 56.5 %; Platelet Count 337 X 10*3/uL (140-440); RBC 4.91 X 10*6/uL (4.40-5.60); RDW 13.9 % (11.5-14.5); WBC 6.63 X 10*3/uL (4.50-10.00)
[2023-08-19 19:21] LABS: ALT 16 U/L (10-49); AST 21 U/L (14-35); Albumin 4.2 g/dL (3.8-4.9); Albumin/Globulin Ratio 1.83 Ratio (1.60-3.17); Alkaline Phosphatase 69 U/L (41-126); Bilirubin, Conjugated <0.20 mg/dL (0.20-0.40); Bilirubin,Unconjugated >0.30 mg/dL (0.20-1.00); Globulin 2.3 g/dL (1.6-3.3); Total Bilirubin 0.5 mg/dL (0.3-1.2); Total Protein 6.5 g/dL (6.2-8.2)
== END | disposition home or self-care (01) ==
LOC: LABWHC1 11:48
PROVIDERS: ATTEND Physician Assistant
DX: Z00.00 Encounter for general adult medical examination without abnormal findings (principal); L12.0 Bullous pemphigoid; Z79.899 Other long term (current) drug therapy
CPT/HCPCS: 36415; 80076; 82565; 85025

== ENCOUNTER 2023-11-09 18:46 | Emergency (ER) | payer MEDICARE ==
--- NOTE | 2023-11-09 19:43 | ED ---
General Adult HPI - General Chief complaint: Wound/Laceration Stated complaint: Laceration on R hip Time Seen by Provider: 11/09/23 19:18 Source: patient, RN notes reviewed Mode of arrival: ambulatory Limitations: no limitations - History of Present Illness Initial comments: 73-year-old male presents to the emergency department for evaluation of bleeding after skin tag removal. He states that this was removed yesterday and he has had persistent bleeding since he had it removed. He notes that he has soaked through many washrags and dressings. He is not on blood thinners but does admit to taking a baby aspirin daily. He states he otherwise feels well. - Related Data Home Medications Medication Instructions Recorded Confirmed ALPRAZolam [Xanax] 0.25 mg PO TID 12/02/21 11/18/22 Atorvastatin Calcium [Lipitor] 20 mg PO DAILY 12/02/21 11/18/22 Aspirin EC [Ecotrin Low Dose] 81 mg PO DAILY 11/18/22 11/18/22 Calcium Carbonate [Calcium] 1,200 mg PO DAILY 11/18/22 11/18/22 Cholecalciferol [Vitamin D3 (25 25 mcg PO DAILY 11/18/22 11/18/22 Mcg = 1000 Iu)] Dapsone 100 mg PO DAILY 11/18/22 11/18/22 Doxycycline Hyclate 100 mg PO BID 11/18/22 11/18/22 Losartan Potassium [Cozaar] 100 mg PO DAILY 11/18/22 11/18/22 Niacinamide 500 mg PO TID 11/18/22 11/18/22 hydrOXYzine HCL [Atarax] 25 mg PO HS 11/18/22 11/18/22 predniSONE 5 mg PO DAILY 11/18/22 11/18/22 Allergies Allergy/AdvReac Type Severity Reaction Status Date / Time Fish Containing Products Allergy Rash/Hives Verified 11/18/22 22:48 [Fish] Review of Systems ROS Statement: Those systems with pertinent positive or pertinent negative responses have been documented in the HPI. ROS Other: All systems not noted in ROS Statement are negative. 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 History of Any Multi-Drug Resistant Organisms: C-DIFF Date of last positivie culture/infection: 2008 Past Surgical History: No Surgical Hx Reported Past Psychological History: No Psychological Hx Reported Smoking Status: Former smoker Past Alcohol Use History: Rare Past Drug Use History: None Reported - Past Family History Mother Family Medical History: Hypertension General Exam Limitations: no limitations General appearance: alert, in no apparent distress Head exam: Present: atraumatic, normocephalic, normal inspection Eye exam: Present: normal appearance, PERRL, EOMI. Absent: scleral icterus, conjunctival injection, periorbital swelling Respiratory exam: Present: normal lung sounds bilaterally. Absent: respiratory distress, wheezes, rales, rhonchi, stridor Cardiovascular Exam: Present: regular rate, normal rhythm, normal heart sounds. Absent: systolic murmur, diastolic murmur, rubs, gallop, clicks Extremities exam: Present: full ROM, normal capillary refill, other. Absent: tenderness, pedal edema, joint swelling, calf tenderness Neurological exam: Present: alert, oriented X3 Psychiatric exam: Present: normal affect, normal mood Skin exam: Present: warm, dry, normal color, other (Bleeding from the area of s kin tag removal on patient's right sided buttock). Absent: intact Course Vital Signs 11/09/23 11/09/23 19:11 21:11 Temperature 97.8 F Pulse Rate 104 H 81 Respiratory 16 16 Rate Blood Pressure 100/70 123/75 O2 Sat by Pulse 97 98 Oximetry Procedures - Laceration Laceration #1 Consent Obtained: verbal consent Indication: laceration Site: buttock Size (cm): 1 Depth: simple, single layer Anesthetic Used: lidocaine 1%, with epi Type of Sutures: other Size of Sutures: 5-0 Technique: other ([id number]) Patient Tolerated Procedure: well, no complications Medical Decision Making - Medical Decision Making Was pt. sent in by a medical professional or institution (, PA, MILLING/POLISHING OPERATOR, urgent care, hospital, or jail...) When possible be specific @ -No Did you speak to anyone other than the patient for history (EMS, parent, family, police, friend...)? What history was obtained from this source @ -No Did you review nursing and triage notes (agree or disagree)? Why? @ -I reviewed and agree with nursing and triage notes Were old charts reviewed (outside hosp., previous admission, EMS record, old EKG, old radiological studies, urgent care reports/EKG's, jail records)? Report findings @ -No old charts were reviewed Differential Diagnosis (chest pain, altered mental status, abdominal pain women, abdominal pain men, vaginal bleeding, weakness, fever, dyspnea, syncope, headache, dizziness, GI bleed, back pain, seizure, CVA, palpatations, mental h ealth, musculoskeletal)? @ -laceration, abrasion, this list is not all inclusive EKG interpreted by me (3pts min.). @ -None X-rays interpreted by me (1pt min.). @ -None done CT interpreted by me (1pt min.). @ -None done U/S interpreted by me (1pt. min.). @ -None done What testing was considered but not performed or refused? (CT, X-rays, U/S, labs)? Why? @ -None What meds were considered but not given or refused? Why? @ -None Did you discuss the management of the patient with other professionals (professionals i.e. , PA, MILLING/POLISHING OPERATOR, lab, RT, psych nurse, sr. social media & mobile manager, underground miner, teacher, transit police officer, gearcase assembler)? Give summary @ -No Was smoking cessation discussed for >3mins.? @ -No Was critical care preformed (if so, how long)? @ -No Were there social determinants of health that impacted care today? How? (Homelessness, low income, unemployed, alcoholism, drug addiction, transport ation, low edu. Level, literacy, decrease access to med. care, alf, rehab)? @ -No Was there de-escalation of care discussed even if they declined (Discuss DNR or withdrawal of care, Hospice)? DNR status @ -No What co-morbidities impacted this encounter? (DM, HTN, Smoking, COPD, CAD, Cancer, CVA, ARF, Chemo, Hep., AIDS, mental health diagnosis, sleep apnea, morbid obesity)? @ -None Was patient admitted / discharged? Hospital course, mention meds given and route, prescriptions, significant lab abnormalities, going to OR and other pertinent info. @ -Discharge. Patient presented to the emergency department for bleeding from the area for skin tag removal. He is up-to-date on vaccinations including tetanus. Let was applied to the wound which did not improve bleeding. This was then injected with lidocaine with epinephrine and a [id number] stitch was applied. Bleeding controlled after this. Labs obtained which showed normal hemoglobin, platelets. Advised on wound care and suture removal time. Advised to follow-up with PCP. Patient understanding and agreeable plan. Patient stable at time of discharge. Case discussed with Dr. Campbell. Undiagnosed new problem with uncertain prognosis? @ -No Drug Therapy requiring intensive monitoring for toxicity (Heparin, Nitro, Insulin, Cardizem)? @ -No Were any procedures done? @ -Sutures Diagnosis/symptom? @ -Bleeding from wound Acute, or Chronic, or Acute on Chronic? @ -Acute Uncomplicated (without systemic symptoms) or Complicated (systemic symptoms)? @ -Uncomplicated Side effects of treatment? @ -No Exacerbation, Progression, or Severe Exacerbation? @ -No Poses a threat to life or bodily function? How? (Chest pain, USA, DC, pneumonia, PE, COPD, DKA, ARF, appy, cholecystitis, CVA, Diverticulitis, Homicidal, Suicidal, threat to staff... and all critical care pts) @ -No - Lab Data Result diagrams: 11/09/23 19:48 11/09/23 19:48 Lab Results 11/09/23 11/09/23 Range/Units 19:48 19:48 WBC 8.4 (3.8-10.6) k/uL RBC 4.82 (4.30-5.90) m/uL Hgb 13.3 (13.0-17.5) gm/dL Hct 41.2 (39.0-53.0) % MCV 85.5 (80.0-100.0) fL MCH 27.7 (25.0-35.0) pg MCHC 32.3 (31.0-37.0) g/dL RDW 13.5 (11.5-15.5) % Plt Count 312 (150-450) k/uL MPV 7.7 Neutrophils % 61 % Lymphocytes % 22 % Monocytes % 8 % Eosinophils % 5 % Basophils % 1 % Neutrophils # 5.2 (1.3-7.7) k/uL Lymphocytes # 1.9 (1.0-4.8) k/uL Monocytes # 0.7 (0-1.0) k/uL Eosinophils # 0.5 (0-0.7) k/uL Basophils # 0.1 (0-0.2) k/uL Sodium 137 (137-145) mmol/L Potassium 4.2 (3.5-5.1) mmol/L Chloride 102 (98-107) mmol/L Carbon Dioxide 27 (22-30) mmol/L Anion Gap 8 mmol/L BUN 20 (9-20) mg/dL Creatinine 0.95 (0.66-1.25) mg/dL Est GFR (CKD-EPI)AfAm >90 (>60 ml/min/1.73 sqM) Est GFR (CKD-EPI)NonAf 79 (>60 ml/min/1.73 sqM) Glucose 109 H (74-99) mg/dL Calcium 9.3 (8.4-10.2) mg/dL Disposition Clinical Impression: Bleeding from wound Disposition: HOME SELF-CARE Condition: Stable Instructions (If sedation given, give patient instructions): Care For Your Stitches (ED) Additional Instructions: Please have stitch removed in around 5 days. Follow up with Dr. Fernandez. Return to the emergency department for new or worsening symptoms. Is patient prescribed a controlled substance at d/c from ED?: No Referrals: iMki Fernandez DO [Primary Care Provider] - 1-2 days
[2023-11-09] MEDS: LIDOCAINE/EPINEPHR/TETRACAINE 5 ML BOTTLE TOPICAL ONE (19:46)
[2023-11-09 19:59] VITALS: RESP 16; TEMP 97.8
[2023-11-09 19:59] LABS: Basophils # (A) 0.1 k/uL (0-0.2); Basophils % (A) 1 %; Eosinophils # (A) 0.5 k/uL (0-0.7); Eosinophils % (A) 5 %; HCT 41.2 % (39.0-53.0); HGB 13.3 gm/dL (13.0-17.5); Lymphocytes # (A) 1.9 k/uL (1.0-4.8); Lymphocytes % (A) 22 %; MCH 27.7 pg (25.0-35.0); MCHC 32.3 g/dL (31.0-37.0); MCV 85.5 fL (80.0-100.0); Mean Platelet Volume 7.7; Monocytes # (A) 0.7 k/uL (0-1.0); Monocytes % (A) 8 %; Neutrophils # (A) 5.2 k/uL (1.3-7.7); Neutrophils % (A) 61 %; Platelet Count 312 k/uL (150-450); RBC 4.82 m/uL (4.30-5.90); RDW 13.5 % (11.5-15.5); WBC 8.4 k/uL (3.8-10.6)
[2023-11-09] MEDS: LIDOCAINE 1%-EPI 1:100,000 20 ML VIAL SQ STA (20:04)
[2023-11-09 20:24] LABS: African American GFR (CKD) >90 (>60 ml/min/1.73 sqM); Anion Gap 8 mmol/L; Blood Urea Nitrogen 20 mg/dL (9-20); Calcium 9.3 mg/dL (8.4-10.2); Carbon Dioxide 27 mmol/L (22-30); Chloride 102 mmol/L (98-107); Glucose 109 mg/dL (74-99); Non-African American GFR(CKD) 79 (>60 ml/min/1.73 sqM); Potassium 4.2 mmol/L (3.5-5.1); Sodium 137 mmol/L (137-145)
[2023-11-09 21:16] VITALS: BP 123/75; PULSE 81
== END 2023-11-09 21:13 | disposition home or self-care (01) ==
LOC: EC 18:46
DX: S71.011A Laceration without foreign body, right hip, initial encounter (principal); Z87.891 Personal history of nicotine dependence; Z91.013 Allergy to seafood; X58.XXXA Exposure to other specified factors, initial encounter
CPT/HCPCS: 12001; 36415; 80048; 85025; 99283

== ENCOUNTER → 2023-12-17 | Outpatient (CLI) | payer MEDICARE ==
[2023-12-17 23:33] LABS: Basophils # (A) 0.06 X 10*3/uL (0.00-0.10); Eosinophils # (A) 0.43 X 10*3/uL (0.04-0.35); HCT 41.3 % (39.6-50.0); HGB 13.3 g/dL (13.0-17.0); Lymphocytes # (A) 1.99 X 10*3/uL (0.90-5.00); Lymphocytes % (A) 32.3 %; MCH 27.9 pg (27.0-32.0); MCHC 32.2 g/dL (32.0-37.0); MCV 86.8 FL (80.0-97.0); Mean Platelet Volume 10.4 FL (9.5-12.2); Monocytes # (A) 0.66 X 10*3/uL (0.20-1.00); Monocytes % (A) 10.7 %; NRBC Per 100 WBC 0 X 10*3/uL (0.00-0.01); Neutrophils # (A) 3.02 X 10*3/uL (1.80-7.70); Neutrophils % (A) 48.8 %; Platelet Count 345 X 10*3/uL (140-440); RBC 4.76 X 10*6/uL (4.40-5.60); RDW 13.2 % (11.5-14.5); WBC 6.17 X 10*3/uL (4.50-10.00)
[2023-12-18 14:19] LABS: ALT 13 U/L (10-49); AST 21 U/L (14-35); Albumin 4.3 g/dL (3.8-4.9); Albumin/Globulin Ratio 1.95 Ratio (1.60-3.17); Alkaline Phosphatase 80 U/L (41-126); Bilirubin, Conjugated <0.20 mg/dL (0.20-0.40); Bilirubin,Unconjugated >0.40 mg/dL (0.20-1.00); Globulin 2.2 g/dL (1.6-3.3); Total Bilirubin 0.6 mg/dL (0.3-1.2); Total Protein 6.5 g/dL (6.2-8.2)
== END | disposition home or self-care (01) ==
LOC: LABWHC1 11:20
PROVIDERS: ATTEND Physician Assistant
DX: L12.0 Bullous pemphigoid (principal); Z79.899 Other long term (current) drug therapy
CPT/HCPCS: 36415; 80076; 82565; 85025

== ENCOUNTER → 2025-01-28 | Outpatient (CLI) | payer MEDICARE ==
[2025-01-28 21:16] LABS: Basophils # (A) 0.04 X 10*3/uL (0.00-0.10); Basophils % (A) 0.5 %; Eosinophils # (A) 0.17 X 10*3/uL (0.04-0.35); Eosinophils % (A) 2.0 %; HCT 44.1 % (39.6-50.0); HGB 14.5 g/dL (13.0-17.0); Immature Grans, Automated 0.40 %; Lymphocytes # (A) 2.18 X 10*3/uL (0.90-5.00); Lymphocytes % (A) 26.0 %; MCH 28.7 pg (27.0-32.0); MCHC 32.9 g/dL (32.0-37.0); MCV 87.3 FL (80.0-97.0); Monocytes # (A) 0.86 X 10*3/uL (0.20-1.00); Monocytes % (A) 10.3 %; NRBC Per 100 WBC 0 X 10*3/uL (0.00-0.01); Neutrophils # (A) 5.10 X 10*3/uL (1.80-7.70); Neutrophils % (A) 60.8 %; Platelet Count 283 X 10*3/uL (140-440); RBC 5.05 X 10*6/uL (4.40-5.60); RDW 13.3 % (11.5-14.5); WBC 8.38 X 10*3/uL (4.50-10.00)
[2025-01-28 21:28] LABS: ALT 18 U/L (10-49); AST 25 U/L (14-35); Albumin 4.4 g/dL (3.8-4.9); Albumin/Globulin Ratio 1.63 Ratio (1.60-3.17); Alkaline Phosphatase 71 U/L (41-126); Bilirubin,Unconjugated 0.35 mg/dL (0.20-1.00); Globulin 2.7 g/dL (1.6-3.3); Total Protein 7.1 g/dL (6.2-8.2)
== END | disposition home or self-care (01) ==
LOC: LABWHC1 13:45
PROVIDERS: ATTEND Physician Assistant
DX: L12.0 Bullous pemphigoid (principal); Z79.899 Other long term (current) drug therapy
CPT/HCPCS: 36415; 80076; 82565; 85025